=== PATIENT | female | born 1945 | race Caucasian/White ===

== ENCOUNTER 2018-07-14 10:15 | Outpatient (RCR) | payer MEDICARE | END 2018-07-21 | disposition home or self-care (01) | LOC: PTY 10:15 | DX: I89.0 Lymphedema, not elsewhere classified (principal); M81.0 Age-related osteoporosis without current pathological fracture; F41.9 Anxiety disorder, unspecified; M19.90 Unspecified osteoarthritis, unspecified site | CPT/HCPCS: 97140; 97163; 97535; G8978; G8979 ==